=== PATIENT | male | born 1990 | race Caucasian/White ===

== ENCOUNTER 2018-07-01 16:04 | Emergency (ER) | payer OTHER ==
[~2018-07-01] VITALS: Ht 175.3 cm; Wt 93.0 kg
[2018-07-01] MEDS ORDERED: IV NORMAL SALINE 1,000ML 1,000 ML IV SCH (16:38)
[2018-07-01 16:58] LABS: BASO % 0 % (0-3); EOS # 0.1 x10^3/uL (0.0-0.7); EOS % 1 % (0-3); HEMATOCRIT 46.3 % (39.0-53.0); LYMPH # 0.5 x10^3/uL (1.0-4.8); LYMPH % 6 % (24-48); MEAN CORPUSCULAR HEMOGLOBIN 34 pg (25-35); MEAN CORPUSCULAR HGB CONC 35 g/dL (31-37); MEAN CORPUSCULAR VOLUME 98 fL (79-100); MONO # 0.3 x10^3/uL (0.0-1.1); MONO % 3 % (0-9); NEUT # 7.8 x10^3uL (1.8-7.7); NEUT % 90 % (31-73); PLATELET COUNT 202 x10^3/uL (140-400); RED BLOOD COUNT 4.73 x10^6/uL (4.30-5.70); RED CELL DISTRIBUTION WIDTH 13.2 % (11.5-14.5); WHITE BLOOD COUNT 8.7 x10^3/uL (4.0-11.0)
--- NOTE | 2018-07-01 17:06 | PHYS DOC ---
Adult General Chief Complaint Chief Complaint: ABDOMINAL PAIN HPI HPI Patient is a 27 year old male who presents with complaining of diarrhea and abdominal pain. Patient states since last night he had more than 20 episodes of nonbloody diarrhea with epigastric pain as a constant pain with radiation to his back that getting worse with episodes of diarrhea. Patient denies nausea and vomiting and fever and chills. Patient states he had sick contacts at home and his had the same problem after eating the same steak that he ate. Review of Systems Review of Systems Constitutional: Denies fever or chills [] Eyes: Denies change in visual acuity, redness, or eye pain [] HENT: Denies nasal congestion or sore throat [] Respiratory: Denies cough or shortness of breath [] Cardiovascular: No additional information not addressed in HPI [] GI: Reports abdominal pain, diarrhea mild denies nausea, vomiting, bloody stool[ ] : Denies dysuria or hematuria [] Musculoskeletal: Denies back pain or joint pain [] Integument: Denies rash or skin lesions [] Neurologic: Denies headache, focal weakness or sensory changes [] Endocrine: Denies polyuria or polydipsia [] All other systems were reviewed and found to be within normal limits, except as documented in this note. Current Medications Current Medications Current Medications Medications (Trade) Dose Ordered Sig/Alyx Start Time Stop Time Status Last Admin Dose Admin Sodium Chloride 1,000 ml @ 1,000 mls/hr Q1H 07/01/18 16:38 07/01/18 17:37 07/01/18 16:53 1,000 MLS/HR Allergies Allergies Allergies Coded Allergies Type Severity Reaction Last Updated Verified cefaclor Allergy Unknown 07/01/18 Yes Physical Exam Physical Exam Constitutional: Well developed, well nourished, mild distress, non-toxic appearance. [] HENT: Normocephalic, atraumatic, oropharynx dry. Eyes: PERRLA, EOMI, conjunctiva normal, no discharge. [] Neck: Normal range of motion, no tenderness, supple, no stridor. [] Cardiovascular: H Cardia, no murmur [] Lungs & Thorax: Bilateral breath sounds clear to auscultation [] Abdomen: Bowel sounds normal, soft, epigastric guarding, no tenderness, no masses, no pulsatile masses. [] Skin: Warm, dry, no erythema, no rash. [] Back: No tenderness, no CVA tenderness. [] Extremities: No tenderness, no cyanosis, no clubbing, ROM intact, no edema. [] Neurologic: Alert and oriented X 3, normal motor function, normal sensory function, no focal deficits noted. [] Psychologic: Affect normal, judgement normal, mood normal. [] EKG EKG [] Radiology/Procedures Radiology/Procedures [] Course & Med Decision Making Course & Med Decision Making Pertinent Labs reviewed. (See chart for details) Evaluation of patient in ER showed 27-year-old male patient with complaining of frequent episodes of diarrhea with sick contacts at home. Patient treated with IV fluid and felt better. Patient had unremarkable labs. Plan discharge patient home to diagnose of acute enteritis. Dragon Disclaimer Dragon Disclaimer This electronic medical record was generated, in whole or in part, using a voice recognition dictation system. Departure Departure: Impression: Primary Impression: Food poisoning Additional Impression: Diarrhea Disposition: HOME, SELF-CARE (1800) Condition: IMPROVED Referrals: LIZY JORDAN MD (PCP) Patient Instructions: Diarrhea, Diet for Diarrhea, Adult, Food Poisoning Additional Instructions: Drink plenty of liquids Follow-up with your primary care physician in 3-5 days Return to ER if not getting better Scripts Hydrocodone Bit/Acetaminophen (NORCO 5-325 TABLET) 1 Each Tablet 1 TAB PO PRN Q6HRS PRN for PAIN, #10 TAB 0 Refills Prov: GUIDO BOATENG MD 07/01/18 Problem Qualifiers Primary Impression: Food poisoning Encounter type: initial encounter Injury intent: undetermined intent Qualified Codes: T62.94XA - Toxic effect of unspecified noxious substance eaten as food, undetermined, initial encounter Additional Impression: Diarrhea Diarrhea type: unspecified type Qualified Codes: R19.7 - Diarrhea, unspecified GUIDO BOATENG MD Jul 01, 2018 17:06
[2018-07-01 17:18] LABS: BILIRUBIN,URINE NEG (NEG); CLARITY,URINE CLEAR; COLOR,URINE YELLOW; GLUCOSE,URINE NEG (NEG)
[2018-07-01 17:19] LABS: BACTERIA,URINE 0 /HPF (0-FEW); NITRITE,URINE NEG (NEG); RBC,URINE 0 /HPF (0-2); SQUAMOUS EPITHELIAL CELL,UR OCC /LPF; UROBILINOGEN,URINE 0.2 mg/dL (0.2 mg/dL); WBC,URINE 0 /HPF (0-4)
[2018-07-01] MEDS ORDERED: FAMOTIDINE 20 MG/2 ML VIAL IVP ONE (17:30)
[2018-07-01 17:35] LABS: ALBUMIN 4.4 g/dL (3.4-5.0); ALBUMIN/GLOBULIN RATIO 1.2 (1.0-1.7); CALCIUM 9.3 mg/dL (8.5-10.1); CREATININE 1.1 mg/dL (0.7-1.3); GFR 80.9; TOTAL BILIRUBIN 0.7 mg/dL (0.2-1.0); TOTAL PROTEIN 8.1 g/dL (6.4-8.2)
[2018-07-01] MEDS ORDERED: HYDR-3165 PO (18:02)
[2018-07-01 18:15] VITALS: BP 134/72
== END 2018-07-01 18:15 | disposition home or self-care (01) ==
LOC: ER 16:04
DX: T62.94XA Toxic effect of unspecified noxious substance eaten as food, undetermined, initial encounter (principal); R19.7 Diarrhea, unspecified; Z88.1 Allergy status to other antibiotic agents; Y92.89 Other specified places as the place of occurrence of the external cause
CPT/HCPCS: 36415; 80053; 81001; 83690; 85025; 96361; 96374; 99283; J3490; J7030

== ENCOUNTER 2019-11-10 11:19 | Emergency (ER) | payer OTHER ==
[~2019-11-10] VITALS: Ht 175.3 cm; Wt 111.4 kg
[~2019-11-10 11:19] MED LIST: HYDR-3165 PO
[2019-11-10] MEDS ORDERED: KETOROLAC 15 MG/ML VIAL. IVP ONE (12:15)
[2019-11-10] MEDS ORDERED: ONDANSETRON PF 4 MG/2 ML VIAL. IVP ONE (12:15)
[2019-11-10] MEDS ORDERED: IV NORMAL SALINE 1,000ML 1,000 ML IV ONE (12:15)
[2019-11-10] MEDS ORDERED: IOHEXOL 300 MG/ML 75 ML VIAL. IV ONE (12:30)
[2019-11-10] MEDS ORDERED: CONTRAST GIVEN. MC PRN (12:30)
[2019-11-10 12:47] LABS: BASO % 1 % (0-3); EOS # 0.1 x10^3/uL (0.0-0.7); EOS % 2 % (0-3); HEMATOCRIT 43.7 % (39.0-53.0); HEMOGLOBIN 15.3 g/dL (13.0-17.5); LYMPH % 34 % (24-48); MEAN CORPUSCULAR HEMOGLOBIN 35 pg (25-35); MEAN CORPUSCULAR HGB CONC 35 g/dL (31-37); MEAN CORPUSCULAR VOLUME 99 fL (79-100); MONO # 0.5 x10^3/uL (0.0-1.1); MONO % 8 % (0-9); NEUT # 3.2 x10^3uL (1.8-7.7); NEUT % 55 % (31-73); PLATELET COUNT 226 x10^3/uL (140-400); RED BLOOD COUNT 4.43 x10^6/uL (4.30-5.70); WHITE BLOOD COUNT 5.8 x10^3/uL (4.0-11.0)
--- NOTE | 2019-11-10 12:55 | RAD ---
INDICATION: Reason: right groin pain, hx of inguinal hernia / Spl. Instructions: / History: COMPARISON: None. TECHNIQUE: Axial CT images obtained through the abdomen and pelvis with contrast. One or more of the following individualized dose reduction techniques were utilized for this examination: 1. Automated exposure control; 2. Adjustment of the mA and/or kV according to patient size; 3. Use of iterative reconstruction technique. FINDINGS: Abdominal aorta is not aneurysmal. Small fat-containing umbilical hernia. Small fat-containing left inguinal hernia. Gallbladder is partially contracted. No intrahepatic bile duct dilation. No peripancreatic fluid collection. The spleen is unremarkable. No hydronephrosis. The urinary bladder has minimal urine within it at time of exam. No periappendiceal inflammatory changes. No dilated loops of bowel to suggest obstruction. Degenerative changes the spine. Pars defects at L5. Grade 1 anterolisthesis of L5 on S1. IMPRESSION: * No evidence of appendicitis, bowel obstruction or hydronephrosis. * Fat-containing left inguinal hernia. Electronically signed by: Surya Mendez MD (11/10/2019 12:52 PM) [id number]
[2019-11-10 12:56] LABS: CALCIUM 9.1 mg/dL (8.5-10.1); CREATININE 1.2 mg/dL (0.7-1.3); GFR 72.1; POTASSIUM 3.8 mmol/L (3.5-5.1)
[2019-11-10 13:02] LABS: ALBUMIN 4.2 g/dL (3.4-5.0); ALBUMIN/GLOBULIN RATIO 1.1 (1.0-1.7); MAGNESIUM 1.9 mg/dL (1.8-2.4); TOTAL BILIRUBIN 0.5 mg/dL (0.2-1.0); TOTAL PROTEIN 7.9 g/dL (6.4-8.2)
[2019-11-10 13:05] LABS: BACTERIA,URINE 0 /HPF (0-FEW); BILIRUBIN,URINE NEG (NEG); CLARITY,URINE CLEAR; COLOR,URINE YELLOW; GLUCOSE,URINE NEG (NEG); NITRITE,URINE NEG (NEG); RBC,URINE 0 /HPF (0-2); UROBILINOGEN,URINE 0.2 mg/dL (0.2 mg/dL); WBC,URINE 0 /HPF (0-4)
--- NOTE | 2019-11-10 13:14 | PHYS DOC ---
Past History Past Medical History: No Pertinent History Additional Past Surgical Histo: Left knee Smoking: Non-smoker Alcohol Use: Occasionally Drug Use: None General Adult EDM: Chief Complaint: HIP PAIN HPI: HPI: 29 year old male presents with report of right groin pain which has been ongoing for last 6 months intermittently. Reports he was diagnosed with inguinal hernia but reported the surgeon thought it was "too small" to repair at that time. Patient reports pain significantly increased over the last few days. Denies known exacerbating moment. Denies trauma. Denies N/V/D or constipation. Denies fever/chills. Review of Systems: Review of Systems: Constitutional: Denies fever or chills Eyes: Denies change in visual acuity, redness, or eye pain HENT: Denies nasal congestion or sore throat Respiratory: Denies cough or shortness of breath Cardiovascular: Denies chest pain or palpitations GI: Reports abdominal pain; denies nausea, vomiting, or diarrhea : Denies dysuria or hematuria Musculoskeletal: Denies back pain or joint pain Integument: Denies rash or skin lesions Neurologic: Denies headache, focal weakness or sensory changes Complete systems were reviewed and found to be within normal limits, except as documented in this note. Current Medications: Current Meds: Current Medications Medications (Trade) Dose Ordered Sig/Alyx Start Time Stop Time Status Last Admin Dose Admin Info (Do NOT chart on this entry -- for MONITORING) 1 each PRN DAILY PRN 11/10/19 12:30 11/12/19 12:29 Iohexol (Omnipaque 300 Mg/ml) 75 ml 1X ONCE 11/10/19 12:30 11/10/19 12:31 DC 11/10/19 12:36 75 ML Ketorolac Tromethamine (Toradol 15mg Vial) 15 mg 1X ONCE 11/10/19 12:15 11/10/19 12:17 DC 11/10/19 12:30 15 MG Ondansetron HCl (Zofran) 4 mg 1X ONCE 11/10/19 12:15 11/10/19 12:17 DC 11/10/19 12:30 4 MG Sodium Chloride 1,000 ml @ 1,000 mls/hr 1X ONCE 11/10/19 12:15 11/10/19 13:14 11/10/19 12:15 1,000 MLS/HR Allergies: Allergies: Allergies Coded Allergies Type Severity Reaction Last Updated Verified cefaclor Allergy Unknown 11/10/19 Yes Physical Exam: PE: Constitutional: Well developed, well nourished, no acute distress, non-toxic appearance HENT: Normocephalic, atraumatic Eyes: Conjunctiva normal, no discharge Neck: Normal range of motion, supple Lungs & Thorax: Equal chest rise and fall, no respiratory distress Abdomen: Soft, RLQ tenderness, McBurney's point nontender, no guarding/rebound tenderness/distention Skin: Warm, dry, no erythema, no rash Back: No tenderness, no CVA tenderness Extremities: No tenderness, ROM intact, no edema Neurologic: Alert and oriented X 3, no focal deficits noted Psychologic: Affect normal, judgement normal Current Patient Data: Labs: Laboratory Tests Test 11/10/19 12:10 11/10/19 12:30 White Blood Count 5.8 x10^3/uL (4.0-11.0) Red Blood Count 4.43 x10^6/uL (4.30-5.70) Hemoglobin 15.3 g/dL (13.0-17.5) Hematocrit 43.7 % (39.0-53.0) Mean Corpuscular Volume 99 fL (79-100) Mean Corpuscular Hemoglobin 35 pg (25-35) Mean Corpuscular Hemoglobin Concent 35 g/dL (31-37) Red Cell Distribution Width 13.0 % (11.5-14.5) Platelet Count 226 x10^3/uL (140-400) Neutrophils (%) (Auto) 55 % (31-73) Lymphocytes (%) (Auto) 34 % (24-48) Monocytes (%) (Auto) 8 % (0-9) Eosinophils (%) (Auto) 2 % (0-3) Basophils (%) (Auto) 1 % (0-3) Neutrophils # (Auto) 3.2 x10^3uL (1.8-7.7) Lymphocytes # (Auto) 2.0 x10^3/uL (1.0-4.8) Monocytes # (Auto) 0.5 x10^3/uL (0.0-1.1) Eosinophils # (Auto) 0.1 x10^3/uL (0.0-0.7) Basophils # (Auto) 0.0 x10^3/uL (0.0-0.2) Urine Collection Type Unknown Urine Color Yellow Urine Clarity Clear Urine pH 7.0 Urine Specific [place] 1.010 Urine Protein Neg (NEG-TRACE) Urine Glucose (UA) Neg mg/dL (NEG) Urine Ketones (Stick) Neg mg/dL (NEG) Urine Blood Neg (NEG) Urine Nitrite Neg (NEG) Urine Bilirubin Neg (NEG) Urine Urobilinogen Dipstick 0.2 mg/dL (0.2 mg/dL) Urine Leukocyte Esterase Neg (NEG) Urine RBC 0 /HPF (0-2) Urine WBC 0 /HPF (0-4) Urine Squamous Epithelial Cells None /LPF Urine Bacteria 0 /HPF (0-FEW) Sodium Level 139 mmol/L (136-145) Potassium Level 3.8 mmol/L (3.5-5.1) Chloride Level 102 mmol/L (98-107) Carbon Dioxide Level 28 mmol/L (21-32) Anion Gap 9 (6-14) Blood Urea Nitrogen 12 mg/dL (8-26) Creatinine 1.2 mg/dL (0.7-1.3) Estimated GFR (Cockcroft-Gault) 72.1 BUN/Creatinine Ratio 10 (6-20) Glucose Level 101 mg/dL (70-99) H Calcium Level 9.1 mg/dL (8.5-10.1) Magnesium Level 1.9 mg/dL (1.8-2.4) Total Bilirubin 0.5 mg/dL (0.2-1.0) Aspartate Amino Transferase (AST) 16 U/L (15-37) Alanine Aminotransferase (ALT) 32 U/L (16-63) Alkaline Phosphatase 50 U/L (46-116) Total Protein 7.9 g/dL (6.4-8.2) Albumin 4.2 g/dL (3.4-5.0) Albumin/Globulin Ratio 1.1 (1.0-1.7) Lipase 112 U/L (73-393) EKG: EKG: [] Radiology/Procedures: Radiology/Procedures: PROCEDURE: CT ABD PELV W/ IV CONTRST ONLY INDICATION: Reason: right groin pain, hx of inguinal hernia / Spl. Instructions: / History: COMPARISON: None. TECHNIQUE: Axial CT images obtained through the abdomen and pelvis with contrast. One or more of the following individualized dose reduction techniques were utilized for this examination: 1. Automated exposure control; 2. Adjustment of the mA and/or kV according to patient size; 3. Use of iterative reconstruction technique. FINDINGS: Abdominal aorta is not aneurysmal. Small fat-containing umbilical hernia. Small fat-containing left inguinal hernia. Gallbladder is partially contracted. No intrahepatic bile duct dilation. No peripancreatic fluid collection. The spleen is unremarkable. No hydronephrosis. The urinary bladder has minimal urine within it at time of exam. No periappendiceal inflammatory changes. No dilated loops of bowel to suggest obstruction. Degenerative changes the spine. Pars defects at L5. Grade 1 anterolisthesis of L5 on S1. IMPRESSION: * No evidence of appendicitis, bowel obstruction or hydronephrosis. * Fat-containing left inguinal hernia. Electronically signed by: Surya Mendez MD (11/10/2019 12:52 PM) [id number] Course & Med Decision Making: Course & Med Decision Making Pertinent Labs and Imaging studies reviewed. (See chart for details) Patient presents with report of pain to right lower abdomen/groin with history of known inguinal hernia. Reports symptoms present x 6 months but worse over the last few days. Pain addressed. IVF hydration given. Labs obtained and posted to chart. CT abd/pelvis without significant findings. Patient stable for discharge home with outpatient follow-up with PCP/general surgery. General surgery referral provided. Discussed findings and plan with patient, who acknowledges understanding and agreement. Saman Disclaimer: Saman Disclaimer: This electronic medical record was generated, in whole or in part, using a voice recognition dictation system. Departure Departure: Impression: Primary Impression: Inguinal hernia Qualified Codes: K40.90 - Unilateral inguinal hernia, without obstruction or gangrene, not specified as recurrent Disposition: 01 HOME/RESIDENCE PRIOR TO ADM Condition: STABLE Referrals: MARY BEVERLY (PCP) AMADOR TAVERAS MD Patient Instructions: Hernia, [id number] Justification of Admission: Justification of Admission: Justification of Admission Dx: N/A SAE REDD DO Nov 10, 2019 13:14
[2019-11-10 13:42] VITALS: BP 126/74
== END 2019-11-10 13:38 | disposition home or self-care (01) ==
LOC: ER 11:19
DX: K40.90 Unilateral inguinal hernia, without obstruction or gangrene, not specified as recurrent (principal); M25.551 Pain in right hip; R10.31 Right lower quadrant pain; Z79.899 Other long term (current) drug therapy
CPT/HCPCS: 36415; 74177; 80053; 81001; 83690; 83735; 85025; 85610; 85730; 96374; 96375; 99285; J1885; J2405; J7030; Q9967

== ENCOUNTER 2020-03-27 13:35 | Emergency (ER) | payer OTHER ==
[~2020-03-27] VITALS: Ht 175.3 cm; Wt 112.0 kg
[2020-03-27 13:45] VITALS: BP 130/78
--- NOTE | 2020-03-27 14:20 | PHYS DOC ---
Past History Past Medical History: No Pertinent History (SAE RUSSELL APRN) Additional Past Surgical Histo: knee surgery X 2 (SAE RUSSELL APRN) Smoking: Non-smoker Alcohol Use: Rarely Drug Use: None (SAE RUSSELL APRN) Adult General Chief Complaint Chief Complaint: FINGER INJURY HPI HPI Patient is a-year-old male presents to the emergency department with laceration to the left middle tip he suffered while cutting chicken. States his Td status is UTD. Reports he cannot get his finger to stop bleeding. pt denies other complaitns or physical concerns. pt is not homicidal or suicidal, denies anxiety or depression. (SAE RUSSELL APRN) Review of Systems Review of Systems 14 body systems of review of systems have been reviewed. See HPI for pertinent positives and negative responses, otherwise all other systems are negative, nonpertinent or noncontributory. (SAE RUSSELL APRN) Allergies Allergies Allergies Coded Allergies Type Severity Reaction Last Updated Verified cefaclor Allergy Unknown 11/10/19 Yes (SAE RUSSELL APRN) Physical Exam Physical Exam Constitutional: Well developed, well nourished, no acute distress, non-toxic appearance. [] HENT: Normocephalic, atraumatic, bilateral external ears normal, oropharynx moist, no oral exudates, nose normal. [] Eyes: PERRLA, EOMI, conjunctiva normal, no discharge. [] Neck: Normal range of motion, no tenderness, supple, no stridor. [] Cardiovascular:Heart rate regular rhythm, no murmur [] Lungs & Thorax: Bilateral breath sounds clear to auscultation [] Abdomen: Bowel sounds normal, soft, no tenderness, no masses, no pulsatile masses. [] Skin: Warm, dry, no erythema, no rash. 0.5CM laceration to left middle finger distal tip without fingernail damage, bleeding controlled, cap refill <2 sec, N/V intact. Back: No tenderness, no CVA tenderness. [] Extremities: No tenderness, no cyanosis, no clubbing, ROM intact, no edema. [] Neurologic: Alert and oriented X 3, normal motor function, normal sensory function, no focal deficits noted. [] Psychologic: Affect normal, judgement normal, mood normal. [] (SAE RUSSELL APRN) Current Patient Data Vital Signs Vital Signs Date Time Temp Pulse Resp B/P (MAP) Pulse Ox O2 Delivery O2 Flow Rate FiO2 03/27/20 13:45 98.1 80 14 130/78 (95) 95 (SAE RUSSELL APRN) EKG EKG [] (SAE RUSESLL APRN) Radiology/Procedures Radiology/Procedures [] (SAE RUSSELL APRN) Heart Score Risk Factors: Risk Factors: DM, Current or recent (<one month) smoker, HTN, HLP, family history of CAD, obesity. Risk Scores: Risk Factors: DM, Current or recent (<one month) smoker, HTN, HLP, family history of CAD, obesity. (SAE RUSSELL APRN) Course & Med Decision Making Course & Med Decision Making Pertinent Labs and Imaging studies reviewed. (See chart for details) 29 yo patient Vital signs reviewed, presents with distal tip lacartation, bleeding controlled, elected to cleanse and glue repair, see repair note. Pt tolerated well, gave verbal understanding of glue skin wound car, RTER concerns, had no other questions or concerns, pt D/Cd to home without incident. (SAE RUSSELL APRN) Course & Med Decision Making I have reviewed the SUPERVISOR EVAPORATOR's note and plan of care. I was available for consultation as needed during the patient's visit in the emergency department. I agree with the clinical impression, plan, and disposition. (KIMI MALDONADO DO) Dragon Disclaimer Dragon Disclaimer This electronic medical record was generated, in whole or in part, using a voice recognition dictation system. (SAE RUSSELL APRN) Departure Departure: Impression: Primary Impression: Laceration of finger Additional Impression: Glued skin wound Disposition: 01 DC HOME SELF CARE/HOMELESS Condition: IMPROVED Referrals: MARY BEVERLY (PCP) Patient Instructions: Fingertip Laceration Additional Instructions: You had a laceration of your left middle finger tip, we have elected to glue this laceration, please refrain from using lotions or oils on the glue site for the next 5 to 7 days, the glue should peel off on its own. Please return the emergency department for signs and symptoms of infection or worsening symptoms or other concerns. EMERGENCY DEPARTMENT GENERAL DISCHARGE INSTRUCTIONS Thank you for coming to [facility] (ED) today and trusting us with you care. We trust that you had a positivie experience in our Emergency Department. If you wish to speak to the department management, you may call the director at [phone]. YOUR FOLLOW UP INSTRUCTIONS ARE FOLLOWS: 1. Do you have a private Doctor? If you do not have a private doctor, please ask for a resource list of physicians or clinics that may be able to assist you with follow up care. 2. The Emergency Physician has interpreted your x-rays. The X-Ray specialist will also review them. If there is a change in the findings, you will be notified in 48 hours when at all possible. 3. A lab test or culture has been done, your results will be reviewed and you will be notified if you need a change in treatment. ADDITIONAL INSTRUCTIONS AND INFORMATION: 1. Your care today has been supervised by a physician who is specially trained in emergency care. Many problems require more than one evaluation for a complete diagnosis and treatment. We recommend that you schedule your follow up appointment as recommended to ensure complete treatment of you illness or injury. If you are unable to obtain follow up care and continue to have a problem, or if your condition worsens, we recommend that you return to the ED. 2. We are not able to safely determine your condition over the phone nor are we able to give sound medical advice over the phone. For these safety reasons, if you call for medical advice we will ask you to come to the ED for further evaluation. 3. If you have any questions regarding these discharge instructions please call the ED at [phone]. SAFETY INFORMATION: In the interest of safety, wellness, and injury prevention; we encourage you to wear your sealbelt, if you smoke; quite smoking, and we encourage family to use a protective helmet for bicycling and other sporting events that present an increased risk for head injury. IF YOUR SYMPTOMS WORSEN OR NEW SYMPTOMS DEVELOP, OR YOU HAVE CONCERNS ABOUT YOUR CONDITION; OR IF YOUR CONDITION WORSENS WHILE YOU ARE WAITING FOR YOUR FOLLOW UP APPOINTMENT; EITHER CONTACT YOUR PRIMARY CARE DOCTOR, THE PHYSICIAN WHOSE NAME AND NUMBER YOU WERE GIVEN, OR RETURN TO THE ED IMMEDIATELY. Laceration Repair Lac Repair Indication: left middle finger distal tip laceration Procedure: The patient was placed in the appropriate position and anesthesia around the wound was defered per pts request, laceration cleansed with chl orhexadine soap, irrigated with 240 cc NS, repaired with Dermabond, dressed with bandaid. Total repaired wound length: "C" shaped 0.5 CM laceration partial skin thickness Other Items: [OTHER ITEMS] The patient tolerated the procedure well. Complications: [no complications during repair procedure. (SAE RUSSELL APRN) Problem Qualifiers Primary Impression: Laceration of finger Encounter type: initial encounter Finger: middle finger Damage to nail status: without damage Foreign body presence: without foreign body Laterality: left Qualified Codes: S61.213A - Laceration without foreign body of left middle finger without damage to nail, initial encounter SAE RUSSELL APRN Mar 27, 2020 14:20 KIMI MALDONADO DO Mar 28, 2020 13:38
== END 2020-03-27 14:25 | disposition home or self-care (01) ==
LOC: ER 13:35
DX: S61.213A Laceration without foreign body of left middle finger without damage to nail, initial encounter (principal); Z88.1 Allergy status to other antibiotic agents; W26.0XXA Contact with knife, initial encounter; Y93.89 Activity, other specified; Y92.89 Other specified places as the place of occurrence of the external cause; Y99.8 Other external cause status
CPT/HCPCS: 12001; 99282

== ENCOUNTER 2020-04-20 22:34 | Emergency (ER) | payer OTHER ==
[~2020-04-20] VITALS: Ht 175.3 cm; Wt 112.0 kg
--- NOTE | 2020-04-20 22:50 | PHYS DOC ---
Past History Past Medical History: No Pertinent History Additional Past Surgical Histo: knee surgery X 2 Smoking: Non-smoker Alcohol Use: Rarely Drug Use: None Adult General Chief Complaint Chief Complaint: HEADACHE HPI HPI Patient is a 29-year-old male who presents for headache and subsequent high blood pressure readings without official diagnosis of hypertension. Presents via POV. States he has had a headache that started 8 to 12 hours ago without any known inciting event or trauma. Patient took Tylenol and ibuprofen with significant relief in pain. Nothing known makes worse. Pain is right-sided and radiating from posterior neck to right frontal area. Reports sharp pressure-like pain, no ripping or tearing sensations. States he checked his blood pressure at onset of headache and has had consistent readings of 150s/90s when intermittently checked prior to arrival. Denies any excessive caffeine use or NSAID dependence, admits increased home stress recently given the fact that his daughter is currently hospitalized. 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 No history of intracranial abnormalities, denies this being worst headache of his life, no thunderclap onset, changes in vision, history of migraine, no prodromal signs or symptoms prior to onset of headache, no chest pain, shortness of breath, cough, abdominal pain, changes in bladder or bowel function. Review of Systems Review of Systems Fourteen body systems of review of systems have been reviewed. See HPI for pert inent positives and negative responses, other suero all other systems are negative, non-pertinent or non-contributory Allergies Allergies Allergies Coded Allergies Type Severity Reaction Last Updated Verified cefaclor Allergy Unknown 11/10/19 Yes Physical Exam Physical Exam General: Appears well, non toxic, and comfortable Skin: Warm, dry. Normal for ethnicity. HEENT: Atraumatic. PERRLA. Moist mucous membranes. Neck: Trachea midline. Normal ROM. Negative Kernig and Brezinski signs, no nuchal rigidity Respiratory: Normal WOB. CTAB w/o w/r/r. No tachypnea. Cardiovascular: Regular rate and rhythm. Normal peripheral perfusion. No edema. Abdomen: Soft. Non tender. No distension. Back: Normal ROM. Musculoskeletal: No swelling or deformity. Neuro: Alert and oriented x 4. MAEE. GCS 15. CN II-XII intact. Normal strength and sensation. Normal speech. Psych: Normal affect and mood. Current Patient Data Vital Signs Vital Signs Date Time Temp Pulse Resp B/P (MAP) Pulse Ox O2 Delivery O2 Flow Rate FiO2 04/20/20 22:34 98.2 83 18 165/81 (109) 97 Room Air EKG EKG [] Radiology/Procedures Radiology/Procedures [] Heart Score HEART Score for Chest Pain: HEART Score for Chest Pain Response (Comments) Value History Slighlty/Non-Suspicious 0 Age < 45 0 Risk Factors 1 or 2 Risk Factors 1 Total 1 Risk Factors: Risk Factors: DM, Current or recent (<one month) smoker, HTN, HLP, family history of CAD, obesity. Risk Scores: Risk Factors: DM, Current or recent (<one month) smoker, HTN, HLP, family history of CAD, obesity. Course & Med Decision Making Course & Med Decision Making I discussed most likely diagnosis of headache in setting of elevated blood pressure without diagnosis of hypertension. Patient reported during my physical examination he has experienced complete resolution of headache prior to any intervention provided while in ER. I addressed patient's concern for elevated blood pressure readings without official diagnosis of hypertension. He has not been checking his blood pressure regularly and does not know what his average readings are. Does admit to increased anxiety and stress at home given events going on with his hospitalized daughter which he thinks might be contributing to his presenting symptoms today as onset of headache occurred while visiting his hospitalized daughter at hospital. I discussed utility of further diagnostic work-up while in ER, I discussed little utility in diagnostic work-up and radiographs, I did recommend CT head imaging but given patient was asymptomatic, he deferred. Joint decision to administer 12.5 mg hydrochlorothiazide for blood pressure prior to departure, we will defer decision to start this on a scheduled basis until BP log can be reviewed by primary care physician for official diagnosis of hypertension. He has good access to care on post with primary care physician and can be seen in upcoming 24 to 48 hours which I feel is appropriate for repeat evaluation. Strict return precautions were also discussed at length with good understanding by patient. Patient voiced understanding and agreement with the plan. Patient knows to come back for repeat evaluation if concerning signs or symptoms present prior to outpatient follow- up. Patient asymptomatic, ambulatory and well-appearing at time of disposition. Dragon Disclaimer Dragon Disclaimer This electronic medical record was generated, in whole or in part, using a voice recognition dictation system. Departure Departure: Impression: Primary Impression: Elevated blood pressure reading without diagnosis of hypertension Additional Impression: Headache Disposition: 01 DC HOME SELF CARE/HOMELESS Condition: STABLE Referrals: PCP,UNKNOWN (PCP) Patient Instructions: General Headache Without Cause Additional Instructions: You were seen for a headache and elevated blood pressure reading without official diagnosis of hypertension. Your symptoms improved with NSAIDs and Tylenol taken prior to arrival. I discussed utility in further diagnostic work- up in ER but joint decision to defer and follow-up in outpatient setting with primary care physician. You should keep a blood pressure log for review with your primary care physician in outpatient setting. You should return to the ED if you develop worsening pain, vision change, numbness, tingling, weakness, vomiting, fever, neck pain, or any other new or concerning symptoms. It was a pleasure to take care of you and I wish you the best going forward Problem Qualifiers KIMI MALDONADO DO Apr 20, 2020 22:50
[2020-04-20 23:25] VITALS: BP 155/82
[2020-04-20] MEDS ORDERED: hydroCHLOROthiazide 25 MG TABLET PO ONE (23:30)
== END 2020-04-20 23:38 | disposition home or self-care (01) ==
LOC: ER 22:34
DX: R03.0 Elevated blood-pressure reading, without diagnosis of hypertension (principal); R51.9 Headache, unspecified; Z88.1 Allergy status to other antibiotic agents
CPT/HCPCS: 99283

== ENCOUNTER 2020-06-17 09:59 | Emergency (ER) | payer OTHER ==
[~2020-06-17] VITALS: Ht 175.3 cm; Wt 115.7 kg
[2020-06-17 10:08] VITALS: BP 146/56
--- NOTE | 2020-06-17 10:35 | RAD ---
EXAM: 3 Views Right Shoulder DATE: 06/17/2020 10:18 AM INDICATION: Reason: Possible dislocation / Spl. Instructions: / History: COMPARISON: No Prior FINDINGS: There is no evidence for acute fracture or dislocation. AC joint is congruent. Mild AC joint degenera tive changes. Humeral head is not high riding. IMPRESSION: 1. No acute fracture or dislocation. 2. Mild AC joint degenerative change. Electronically signed by: Lokesh Higginbotham MD (06/17/2020 10:33 AM) [id number]
--- NOTE | 2020-06-17 10:43 | PHYS DOC ---
Past History Past Medical History: Other Additional Past Medical Histor: INGUINAL HERNIA REPAIRED Past Surgical History: Other Additional Past Surgical Histo: knee surgery X 2 Smoking: Non-smoker Alcohol Use: None Drug Use: None General Adult EDM: Chief Complaint: UPPER EXTREMITY PAIN HPI: HPI: 29-year-old male presents to the ED with complaints of focal, nonradiating right localized shoulder pain that started yesterday morning after he had a blunt shoulder injury while playing football the day before. Patient states he has normal range of motion but certain positions exacerbate the pain. No history of prior injury to that shoulder. 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 No recent fluoroquinolone use. Has not taken anything for the pain and reports pain is very manageable but " I just want to get it checked out." Review of Systems: Review of Systems: Constitutional: Denies fever or chills Eyes: Denies change in visual acuity HENT: Denies nasal congestion or sore throat Respiratory: Denies cough or shortness of breath Cardiovascular: Denies chest pain or edema GI: Denies abdominal pain, nausea, vomiting, bloody stools or diarrhea : Denies dysuria Musculoskeletal: Denies back pain or joint swelling or warmth Integument: Denies rash or diaphoresis Neurologic: Denies headache, focal weakness or sensory changes, no radiculopathy Endocrine: Denies polyuria or polydipsia Lymphatic: Denies swollen glands Psychiatric: Denies depression or anxiety Allergies: Allergies: Allergies Coded Allergies Type Severity Reaction Last Updated Verified cefaclor Allergy Unknown 11/10/19 Yes Physical Exam: PE: Constitutional: Well developed, well nourished, no acute distress, non-toxic appearance. HENT: Normocephalic, atraumatic, Eyes: EOMI, conjunctiva normal, no discharge. Neck: Normal range of motion, supple, Cardiovascular: S1/2 present, regular rhythm Lungs & Thorax: Speaking in full sentences, bilateral equal chest rise, no tachypnea or increased work of breathing Abdomen: soft, no tenderness, Skin: Warm, dry, no erythema, no rash, equal radial pulses Extremities: Focal tenderness over AC joint-no deformity rash or swelling, patient with full range of motion of right shoulder, drop can test negative, positive Rod impingement test, negative Neer's, no pain w/Yergason's test Neurologic: Alert and oriented X 3, normal motor function, normal sensory function, no focal deficits noted. [] Psychologic: Affect normal, judgement normal, mood normal. [] Current Patient Data: Vital Signs: Vital Signs Date Time Temp Pulse Resp B/P (MAP) Pulse Ox O2 Delivery O2 Flow Rate FiO2 06/17/20 10:08 97.8 74 16 146/56 (86) 98 Room Air EKG: EKG: [] Radiology/Procedures: Radiology/Procedures: IMAGING REPORT Signed PATIENT: VALERIA WOOTEN ACCOUNT: [id number] : 1990 LOCATION: ER AGE: 29 SEX: M EXAM STATUS: REG ER ORD. PHYSICIAN: CHET GRACE DO REASON: Possible dislocation PROCEDURE: SHOULDER 2+V RIGHT EXAM: 3 Views Right Shoulder DATE: 06/17/2020 10:18 AM INDICATION: Reason: Possible dislocation / Spl. Instructions: / History: COMPARISON: No Prior FINDINGS: There is no evidence for acute fracture or dislocation. AC joint is congruent. Mild AC joint degenerative changes. Humeral head is not high riding. IMPRESSION: 1. No acute fracture or dislocation. 2. Mild AC joint degenerative change. Electronically signed by: Lokesh Anaya MD (06/17/2020 10:33 AM) [id number] DICTATED AND SIGNED BY: LOKESH ANAYA MD DATE: 06/17/20 1032 CC: PCP,UNKNOWN; CHET GRACE DO ~MTH0 0 Heart Score: Risk Factors: Risk Factors: DM, Current or recent (<one month) smoker, HTN, HLP, family history of CAD, obesity. Risk Scores: Score 0 - 3: 2.5% MACE over next 6 weeks - Discharge Home Score 4 - 6: 20.3% MACE over next 6 weeks - Admit for Clinical Observation Score 7 - 10: 72.7% MACE over next 6 weeks - Early Invasive Strategies Course & Med Decision Making: Course & Med Decision Making Pertinent Labs and Imaging studies reviewed. (See chart for details) Concern for right AC degenerative joint disease with impingement syndrome -could have partial rotator cuff tear vs subacromial bursitis. Recommended NSAIDs [id number] and ophthalmic aide patches. Patient calm and in no distress. Will discharge home with strict ED return precautions were given for pain out of proportion, neurologic deficits, skin color changes or further injury. Encouraged urgent outpatient follow-up with PMD and orthopedic surgery if pain should persist/definitive diagnosis with MRI. Life-threatening processes were considered but are low suspicion at this time, given history, physical exam and ED workup. Pt was educated on all prescription medications and adverse effects. All patient's questions were answered and pt was stable at time of discharge. Life/limb-threatening differential includes but is not limited to, trauma (fracture, dislocation, laceration, compartment syndrome, tendon or ligament injury), neurovascular injury or deficit, infection (osteomyelitis, abscess, cellulitis, septic arthritis, necrotizing fasciitis), deep vein thrombosis, renal/cardiac/liver disease, medication adverse effect, lymphedema/anasarca, vascular insufficiency or malignancy, I spoken with the patient and her caregivers. I explained the patient's con dition, diagnoses and treatment plan based on the information available to me at this time. I have answered the patient and her caregiver's questions and addressed any concerns. The patient and her caregivers have a good understanding of patient's diagnosis, condition and treatment plan as can be expected at this point. Vital signs have been stable. Patient's condition is stable and appropriate for discharge from the emergency department. Patient will pursue further outpatient evaluation with primary care physician or other designated or consulting physician as outlined in the discharge instructions. The patient and/or caregivers are agreeable to this plan of care and follow-up instructions have been explained in detail. The patient and/or caregivers have received these instructions in written form and have expressed an understanding of the discharge instructions. The patient and/or caregivers are aware that any significant change of condition or worsening of symptoms should prompt immediate return to this or the closest emergency department or call to 911. Saman Disclaimer: Saman Disclaimer: This electronic medical record was generated, in whole or in part, using a voice recognition dictation system. Departure Departure: Impression: Primary Impression: DJD of right AC (acromioclavicular) joint Additional Impression: Rotator cuff impingement syndrome of right shoulder Disposition: 01 DC HOME SELF CARE/HOMELESS Condition: STABLE Referrals: PCP,UNKNOWN (PCP) FOLLOW UP WITH FAMILY MEDICINE: [employer] [facility], [facility] [address] [address] [facility] [address] [place] [address], Patient Instructions: Impingement Syndrome, Rotator Cuff, Bursitis with Rehab- [facility], Osteoarthritis Additional Instructions: FOLLOW UP WITH ORTHOPEDICS: [facility] [address], [place] [place] [address] EMERGENCY DEPARTMENT GENERAL DISCHARGE INSTRUCTIONS Thank you for coming to [facility] (ED) today and trusting us with you care. We trust that you had a positivie experience in our Emergency Department. If you wish to speak to the department management, you may call the director at [phone]. YOUR FOLLOW UP INSTRUCTIONS ARE FOLLOWS: 1. Do you have a private Doctor? If you do not have a private doctor, please ask for a resource list of physicians or clinics that may be able to assist you with follow up care. 2. The Emergency Physician has interpreted your x-rays. The X-Ray specialist will also review them. If there is a change in the findings, you will be notified in 48 hours when at all possible. 3. A lab test or culture has been done, your results will be reviewed and you will be notified if you need a change in treatment. ADDITIONAL INSTRUCTIONS AND INFORMATION: 1. Your care today has been supervised by a physician who is specially trained in emergency care. Many problems require more than one evaluation for a complete diagnosis and treatment. We recommend that you schedule your follow up appointment as recommended to ensure complete treatment of you illness or injury. If you are unable to obtain follow up care and continue to have a problem, or if your condition worsens, we recommend that you return to the ED. 2. We are not able to safely determine your condition over the phone nor are we able to give sound medical advice over the phone. For these safety reasons, if you call for medical advice we will ask you to come to the ED for further evaluation. 3. If you have any questions regarding these discharge instructions please call the ED at [phone]. SAFETY INFORMATION: In the interest of safety, wellness, and injury prevention; we encourage you to wear your sealbelt, if you smoke; quite smoking, and we encourage family to use a protective helmet for bicycling and other sporting events that present an increased risk for head injury. IF YOUR SYMPTOMS WORSEN OR NEW SYMPTOMS DEVELOP, OR YOU HAVE CONCERNS ABOUT YOUR CONDITION; OR IF YOUR CONDITION WORSENS WHILE YOU ARE WAITING FOR YOUR FOLLOW UP APPOINTMENT; EITHER CONTACT YOUR PRIMARY CARE DOCTOR, THE PHYSICIAN WHOSE NAME AND NUMBER YOU WERE GIVEN, OR RETURN TO THE ED IMMEDIATELY. Scripts Lidocaine/Menthol (LIDOPATCH) 1 Each Adh..patch 1 HAO TP DAILY PRN for PAIN for 5 Days, #5 EACH 0 Refills Apply 1 patch for 12 hours, remove the next 12 hours May repeat 4 times, 1 patch each day with a total of 5 patches Prov: CHET GRACE DO 06/17/20 CHET GRACE DO Jun 17, 2020 10:43
[2020-06-17] MEDS ORDERED: LIDO1ADH TP (10:59)
== END 2020-06-17 12:12 | disposition home or self-care (01) ==
LOC: ER 09:59
DX: M25.511 Pain in right shoulder (principal); M19.90 Unspecified osteoarthritis, unspecified site; Z98.890 Other specified postprocedural states; Z88.8 Allergy status to other drugs, medicaments and biological substances
CPT/HCPCS: 73030; 99283

== ENCOUNTER 2020-07-12 21:52 | Emergency (ER) | payer OTHER ==
[~2020-07-12] VITALS: Ht 175.3 cm; Wt 115.7 kg
[~2020-07-12 21:52] MED LIST changes: +LIDO1ADH TP
--- NOTE | 2020-07-12 22:20 | PHYS DOC ---
Past History Past Medical History: Other Additional Past Medical Histor: INGUINAL HERNIA REPAIRED Past Surgical History: Other Additional Past Surgical Histo: knee surgery X 2 Smoking: Non-smoker Alcohol Use: None Drug Use: None Adult General Chief Complaint Chief Complaint: CHEST PAIN HPI HPI Patient is a 29-year-old male presents with chest pain. Reports that the pain has been intermittent for the past 2 to 3 months. He was seen at his primary care office for this last week and was prescribed buspirone due to concern that the pain was anxiety related. He was also referred to cardiology but has not made the appointment yet. Since that appointment the pain has become more frequent. He reports an episode today while he was lifting weights at the gym (leg exercises) at which time he states that the pain was located in the left chest, sharp, non-radiating, and associated with lightheadedness and mild sweating. He immediately sat down and checked his heart rate at the time and reports that it went from 110bpm to 60 bpm within several minutes. The pain continues to be intermittent but he denies any symptoms currently other than bilateral ringing in the ears which has also been going on intermittently for the past several months. Patient reports extensive family history of cardiac problems. His father at age 48 of cardiac arrest, his mother has had a pacemaker for many years, and his young daughter has a pacemaker as well. Review of Systems Review of Systems Fourteen body systems of review of systems have been reviewed. See HPI for pertinent positives and negative responses, other suero all other systems are ne gative, non-pertinent or non-contributory Allergies Allergies Allergies Coded Allergies Type Severity Reaction Last Updated Verified cefaclor Allergy Unknown 11/10/19 Yes Physical Exam Physical Exam Constitutional: Well developed, well nourished, no acute distress, non-toxic appearance. HENT: Normocephalic, atraumatic, bilateral external ears normal, oropharynx moist, no oral exudates, nose normal. Eyes: PERRLA, EOMI, conjunctiva normal, no discharge. Neck: Normal range of motion, no tenderness, supple, no stridor. Cardiovascular: Heart rate regular, sinus rhythm, no murmurs rubs or gallops Lungs & Thorax: Bilateral breath sounds clear to auscultation Abdomen: Bowel sounds normal, soft, no tenderness, no masses, no pulsatile masses. Nonsurgical abdomen, no peritoneal signs Skin: Warm, dry, no erythema, no rash. Back: No tenderness, no CVA tenderness. Extremities: No tenderness, no cyanosis, no clubbing, ROM intact, no edema. Neurologic: Alert and oriented X 3, grossly normal motor & sensory function, no focal deficits noted. Psychologic: Affect normal, judgement normal, mood normal. Current Patient Data Vital Signs Vital Signs Date Time Temp Pulse Resp B/P (MAP) Pulse Ox O2 Delivery O2 Flow Rate FiO2 07/13/20 00:45 98.5 69 24 123/68 (86) 97 Room Air 07/12/20 23:35 71 22 162/100 (120) 97 Room Air 07/12/20 23:22 78 23 170/101 (124) 98 Room Air 07/12/20 23:06 69 14 163/88 (113) 97 Room Air 07/12/20 22:50 64 18 154/79 (104) 97 Room Air 07/12/20 22:35 70 15 142/111 (121) 97 Room Air 07/12/20 22:20 63 14 155/96 (115) 98 Room Air 07/12/20 22:06 66 14 160/92 (114) 98 Room Air 07/12/20 22:02 98.5 82 16 146/56 (86) 97 Room Air Lab Results Laboratory Tests Test 07/12/20 22:29 White Blood Count 8.6 x10^3/uL Red Blood Count 4.46 x10^6/uL Hemoglobin 14.9 g/dL Hematocrit 43.5 % Mean Corpuscular Volume 97 fL Mean Corpuscular Hemoglobin 33 pg Mean Corpuscular Hemoglobin Concent 34 g/dL Red Cell Distribution Width 12.5 % Platelet Count 236 x10^3/uL Neutrophils (%) (Auto) 47 % Lymphocytes (%) (Auto) 42 % Monocytes (%) (Auto) 9 % Eosinophils (%) (Auto) 1 % Basophils (%) (Auto) 0 % Neutrophils # (Auto) 4.0 x10^3uL Lymphocytes # (Auto) 3.6 x10^3/uL Monocytes # (Auto) 0.7 x10^3/uL Eosinophils # (Auto) 0.1 x10^3/uL Basophils # (Auto) 0.0 x10^3/uL Sodium Level 141 mmol/L Potassium Level 3.9 mmol/L Chloride Level 102 mmol/L Carbon Dioxide Level 31 mmol/L Anion Gap 8 Blood Urea Nitrogen 20 mg/dL Creatinine 1.2 mg/dL Estimated GFR (Cockcroft-Gault) 72.1 Glucose Level 98 mg/dL Calcium Level 9.7 mg/dL Troponin I Quantitative < 0.017 ng/mL Lipase 142 U/L Current Medications Medications (Trade) Dose Ordered Sig/Alyx Route PRN Reason Start Time Stop Time Status Last Admin Dose Admin Aspirin (Aspirin Chewable) 324 mg 1X ONCE PO 07/12/20 23:00 07/12/20 23:12 DC 07/12/20 23:21 EKG EKG EKG ordered and interpreted by myself at 2205 hrs. as sinus rhythm at 64 bpm, unremarkable intervals, no axis deviation, no acute ischemic findings, no STEMI Comparison EKG ordered and interpreted by myself at 2310 hours. Sinus rhythm at a rate of 66 bpm, unremarkable intervals, no axis deviation, no acute ischemic findings, no STEMI. Radiology/Procedures Radiology/Procedures PROCEDURE: PORTABLE CHEST 1V INDICATION: Reason: Chest pain / Spl. Instructions: / History: COMPARISON: None. FINDINGS: Single view of chest obtained. Hypoexpanded exam without focal airspace consolidation. Cardiac silhouette is unremarkable given portable technique. IMPRESSION: * Hypoexpanded exam without definite focal airspace consolidation. Electronically signed by: Surya Mendez MD (07/13/2020 12:07 AM) DESKTOP- [id number] Heart Score C/O Chest Pain: Yes HEART Score for Chest Pain: HEART Score for Chest Pain Response (Comments) Value History Slighlty/Non-Suspicious 0 ECG Normal 0 Age < 45 0 Risk Factors No Risk Factors 0 Troponin < Normal Limit 0 Total 0 Risk Factors: Risk Factors: DM, Current or recent (<one month) smoker, HTN, HLP, family history of CAD, obesity. Risk Scores: Risk Factors: DM, Current or recent (<one month) smoker, HTN, HLP, family history of CAD, obesity. Course & Med Decision Making Course & Med Decision Making Hemodynamically stable patient with concerning history of cardiac risk factors/family cardiac issues with unremarkable physical exam and diagnostic ER work-up Patient has good access to care with PCP and is pending cardiology consultation which is appropriate. He will likely need outpatient provocative cardiac testing that includes stress and/or echo Patient asymptomatic after reevaluation. He was here mostly because "this is been going on for a while than I am scared ". Reassurance was given that likelihood of any acute abnormality is low. Strict return precautions were discussed with good understanding, all questions and concerns addressed prior to ER departure in stable condition Saman Disclaimer Saman Disclaimer This electronic medical record was generated, in whole or in part, using a voice recognition dictation system. Departure Departure: Impression: Primary Impression: Chest pain, unspecified Disposition: 01 DC HOME SELF CARE/HOMELESS Condition: STABLE Referrals: PCP,UNKNOWN (PCP) Additional Instructions: You were seen for chest pain. Your workup did not show any acute abnormalities today, but does not indicate that you do not have underlying cardiovascular disease. 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 You should return to the ED if you develop worsening chest pain, shortness of breath, fever, abnormal sweating, leg swelling, or any other new or concerning symptoms. It was a pleasure to take care of you and I wish you the best going forward KIMI MALDONADO DO Jul 12, 2020 22:20
[2020-07-12] MEDS ORDERED: ASPIRIN CHEWABLE 81 MG TABLET. PO ONE (23:00)
[2020-07-12 23:08] LABS: BASO % 0 % (0-3); EOS # 0.1 x10^3/uL (0.0-0.7); EOS % 1 % (0-3); HEMATOCRIT 43.5 % (39.0-53.0); HEMOGLOBIN 14.9 g/dL (13.0-17.5); LYMPH # 3.6 x10^3/uL (1.0-4.8); LYMPH % 42 % (24-48); MEAN CORPUSCULAR HEMOGLOBIN 33 pg (25-35); MEAN CORPUSCULAR HGB CONC 34 g/dL (31-37); MEAN CORPUSCULAR VOLUME 97 fL (79-100); MONO # 0.7 x10^3/uL (0.0-1.1); MONO % 9 % (0-9); NEUT % 47 % (31-73); PLATELET COUNT 236 x10^3/uL (140-400); RED BLOOD COUNT 4.46 x10^6/uL (4.30-5.70); RED CELL DISTRIBUTION WIDTH 12.5 % (11.5-14.5); WHITE BLOOD COUNT 8.6 x10^3/uL (4.0-11.0)
[2020-07-12 23:12] LABS: CALCIUM 9.7 mg/dL (8.5-10.1); CREATININE 1.2 mg/dL (0.7-1.3); GFR 72.1; POTASSIUM 3.9 mmol/L (3.5-5.1)
--- NOTE | 2020-07-13 00:10 | RAD ---
INDICATION: Reason: Chest pain / Spl. Instructions: / History: COMPARISON: None. FINDINGS: Single view of chest obtained. Hypoexpanded exam without focal airspace consolidation. Cardiac silhouette is unremarkable given port able technique. IMPRESSION: * Hypoexpanded exam without definite focal airspace consolidation. Electronically signed by: Surya Mendez MD (07/13/2020 12:07 AM) [id number]
[2020-07-13 00:45] VITALS: BP 123/68
--- NOTE | 2020-07-13 00:47 | EKG ---
[facility] ED 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
--- NOTE | 2020-07-13 00:47 | EKG ---
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
== END 2020-07-13 00:49 | disposition home or self-care (01) ==
LOC: ER 21:52
DX: R07.89 Other chest pain (principal); R42 Dizziness and giddiness; H93.13 Tinnitus, bilateral; Z95.0 Presence of cardiac pacemaker; Z88.1 Allergy status to other antibiotic agents
CPT/HCPCS: 36415; 71045; 80048; 83690; 84484; 85025; 93005; 99285

== ENCOUNTER 2020-10-27 21:07 | Emergency (ER) | payer OTHER ==
[~2020-10-27] VITALS: Ht 175.3 cm; Wt 111.8 kg
--- NOTE | 2020-10-27 21:53 | RAD ---
Exam: Chest one view INDICATION: Chest pain TECHNIQUE: Frontal view of the chest Comparisons: 07/12/2020 FINDINGS: The cardiomediastinal silhouette and pulmonary vessels are within normal limits. The lung and pleural spaces are clear. IMPRESSION: No acute cardiopulmonary process. Electronically signed by: Alek Washburn MD (10/27/2020 9:51 PM) MAHSA
[2020-10-27 22:08] LABS: BASO % 1 % (0-3); EOS # 0.2 x10^3/uL (0.0-0.7); EOS % 3 % (0-3); HEMOGLOBIN 14.7 g/dL (13.0-17.5); LYMPH # 2.8 x10^3/uL (1.0-4.8); LYMPH % 39 % (24-48); MEAN CORPUSCULAR HEMOGLOBIN 34 pg (25-35); MEAN CORPUSCULAR HGB CONC 35 g/dL (31-37); MEAN CORPUSCULAR VOLUME 98 fL (79-100); MONO # 0.5 x10^3/uL (0.0-1.1); MONO % 7 % (0-9); NEUT # 3.7 x10^3uL (1.8-7.7); NEUT % 51 % (31-73); PLATELET COUNT 215 x10^3/uL (140-400); RED BLOOD COUNT 4.28 x10^6/uL (4.30-5.70); RED CELL DISTRIBUTION WIDTH 12.4 % (11.5-14.5); WHITE BLOOD COUNT 7.3 x10^3/uL (4.0-11.0)
--- NOTE | 2020-10-27 22:11 | PHYS DOC ---
Past History Past Medical History: GERD, Other Additional Past Medical Histor: INGUINAL HERNIA REPAIRED Past Surgical History: Other Additional Past Surgical Histo: knee surgery X 2, HERNIA REPAIR Smoking: Non-smoker Alcohol Use: Occasionally Drug Use: None Adult General Chief Complaint Chief Complaint: Palpitations [facility] Patient is a 30 year old male who presents with chest palpitations approximately 1 hour prior to arrival. He felt his heart beating and was experiencing sharp chest pain, he took his blood pressure which was 150/100 and his pulse was in higher 50s to 60s. The pain was central without any radiation and was described as sharp with occasional pressure-like sensation. The pain has resolved on arrival to the emergency department. Patient has significant history of having similar symptoms in the past. She was referred to rfid systems engineer in 2 months ago finished cardiac work-up including normal stress test and normal Holter monitoring for 1 week. He has done well since except for having pain that spontaneously started prior to arrival today. Chest pain-free at present time. He denies any abdominal pain, shortness of breath, leg pain, fever, cough, headache, focal weakness or numbness. Review of Systems Review of Systems Constitutional: Denies fever or chills Eyes: Denies change in visual acuity, redness, or eye pain HENT: Denies nasal congestion or sore throat Respiratory: Denies cough or shortness of breath Cardiovascular: No additional information not addressed in [facility] GI: Denies abdominal pain, nausea, vomiting, bloody stools or diarrhea : Denies dysuria or hematuria Musculoskeletal: Denies back pain or joint pain Integument: Denies rash or skin lesions Neurologic: Denies headache, focal weakness or sensory changes Endocrine: Denies polyuria or polydipsia All other systems were reviewed and found to be within normal limits, except as documented in this note. Family History Family History Unremarkable Current Medications Current Medications None Allergies Allergies Allergies Coded Allergies Type Severity Reaction Last Updated Verified cefaclor Allergy Unknown 11/10/19 Yes Physical Exam Physical Exam Constitutional: Well developed, well nourished, no acute distress, non-toxic appearance. HENT: Normocephalic, atraumatic, bilateral external ears normal, oropharynx moist, no oral exudates. Eyes: PERRLA, EOMI, conjunctiva normal, no discharge. Neck: Normal range of motion, no tenderness, supple, no stridor. Cardiovascular:Heart rate regular rhythm, no murmur Lungs & Thorax: Bilateral breath sounds clear to auscultation Abdomen: Bowel sounds normal, soft, no tenderness, no masses, no pulsatile masses. Skin: Warm, dry, no erythema, no rash. Back: No tenderness, no CVA tenderness. Extremities: No tenderness, no cyanosis, no clubbing, ROM intact, no edema. Neurologic: Alert and oriented X 3, normal motor function, normal sensory function, no focal deficits noted. Psychologic: Affect normal, judgement normal, mood normal. Current Patient Data Vital Signs Vital Signs Date Time Temp Pulse Resp B/P (MAP) Pulse Ox O2 Delivery O2 Flow Rate FiO2 10/27/20 21:11 98.0 81 18 149/100 99 Room Air Lab Results Laboratory Tests Test 10/27/20 21:34 White Blood Count 7.3 x10^3/uL Red Blood Count 4.28 x10^6/uL Hemoglobin 14.7 g/dL Hematocrit 42.0 % Mean Corpuscular Volume 98 fL Mean Corpuscular Hemoglobin 34 pg Mean Corpuscular Hemoglobin Concent 35 g/dL Red Cell Distribution Width 12.4 % Platelet Count 215 x10^3/uL Neutrophils (%) (Auto) 51 % Lymphocytes (%) (Auto) 39 % Monocytes (%) (Auto) 7 % Eosinophils (%) (Auto) 3 % Basophils (%) (Auto) 1 % Neutrophils # (Auto) 3.7 x10^3uL Lymphocytes # (Auto) 2.8 x10^3/uL Monocytes # (Auto) 0.5 x10^3/uL Eosinophils # (Auto) 0.2 x10^3/uL Basophils # (Auto) 0.0 x10^3/uL Sodium Level 143 mmol/L Potassium Level 3.5 mmol/L Chloride Level 104 mmol/L Carbon Dioxide Level 30 mmol/L Anion Gap 9 Blood Urea Nitrogen 14 mg/dL Creatinine 0.9 mg/dL Estimated GFR (Cockcroft-Gault) 99.8 Glucose Level 104 mg/dL Calcium Level 8.9 mg/dL Troponin I Quantitative < 0.017 ng/mL EKG EKG EKG has 72 bpm normal sinus rhythm without any significant ST segment abnormalities or arrhythmia or axis abnormalities as interpreted by me [] Radiology/Procedures Radiology/Procedures Chest x-ray as interpreted by radiology is without any acute cardiopulmonary abnormalities. [] Heart Score C/O Chest Pain: Yes HEART Score for Chest Pain: HEART Score for Chest Pain Response (Comments) Value History Slighlty/Non-Suspicious 0 ECG Normal 0 Age < 45 0 Risk Factors No Risk Factors 0 Troponin < Normal Limit 0 Total 0 Risk Factors: Risk Factors: No significant cardiac risk factors Course & Med Decision Making Course & Med Decision Making Pertinent Labs and Imaging studies reviewed. (See chart for details) Patient presented with complaint of chest palpitations with some sharp and atypical pain. He has had extensive work-up done recently including Holter monitor and cardiac stress test which have been all normal. He has been prescribed BuSpar for anxiety by his physician previously. It is unclear if the today's episode could represent anxiety and thus a brief work-up was initiated. His EKG and x-rays are unremarkable. All of his laboratory studies including troponin I were normal. In view of his low risk factors and having had recent work-up done, I feel comfortable discharging him home. Patient is asymptomatic at present and will follow up with his primary care physician in the next couple of days. Dragon Disclaimer Dragon Disclaimer This electronic medical record was generated, in whole or in part, using a voice recognition dictation system. Departure Departure: Impression: Primary Impression: Palpitations Disposition: HOME / SELF CARE / HOMELESS Condition: IMPROVED Referrals: PCP,UNKNOWN (PCP) Patient Instructions: Palpitations Additional Instructions: Please see your primary care physician and if need to the same rfid systems engineer you were seen for your previous work-up. If you develop chest pain again or have any shortness of breath, please seek immediate medical attention. AYAZ CHRISTIAN MD Oct 27, 2020 22:11
[2020-10-27 22:34] LABS: CALCIUM 8.9 mg/dL (8.5-10.1); CREATININE 0.9 mg/dL (0.7-1.3); GFR 99.8; POTASSIUM 3.5 mmol/L (3.5-5.1)
[2020-10-27 23:40] VITALS: BP 111/70
--- NOTE | 2020-10-28 02:36 | EKG ---
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
== END 2020-10-27 23:43 | disposition home or self-care (01) ==
LOC: ER 21:07
DX: R00.2 Palpitations (principal); R07.89 Other chest pain; K21.9 Gastro-esophageal reflux disease without esophagitis; Z88.1 Allergy status to other antibiotic agents
CPT/HCPCS: 36415; 71045; 80048; 84484; 85025; 93005; 99285

== ENCOUNTER 2021-02-28 13:58 | Emergency (ER) | payer OTHER ==
[~2021-02-28] VITALS: Ht 182.9 cm; Wt 100.0 kg
--- NOTE | 2021-02-28 15:11 | RAD ---
AP chest. HISTORY: Chest pain AP view was taken of the chest. Lungs are clear. Heart is normal in size without heart failure. There is no pleural effusion. IMPRESSION: 1. No acute chest disease. Electronically signed by: Kevon Sams MD (02/28/2021 3:09 PM) [id number]
[2021-02-28 15:12] LABS: BASO % 1 % (0-3); EOS # 0.1 x10^3/uL (0.0-0.7); EOS % 1 % (0-3); HEMATOCRIT 43.4 % (39.0-53.0); HEMOGLOBIN 14.9 g/dL (13.0-17.5); LYMPH # 2.1 x10^3/uL (1.0-4.8); LYMPH % 26 % (24-48); MEAN CORPUSCULAR HEMOGLOBIN 34 pg (25-35); MEAN CORPUSCULAR HGB CONC 34 g/dL (31-37); MEAN CORPUSCULAR VOLUME 99 fL (79-100); MONO # 0.5 x10^3/uL (0.0-1.1); MONO % 6 % (0-9); NEUT # 5.5 x10^3uL (1.8-7.7); NEUT % 67 % (31-73); PLATELET COUNT 223 x10^3/uL (140-400); RED BLOOD COUNT 4.38 x10^6/uL (4.30-5.70); RED CELL DISTRIBUTION WIDTH 12.8 % (11.5-14.5); WHITE BLOOD COUNT 8.3 x10^3/uL (4.0-11.0)
[2021-02-28 15:27] LABS: CALCIUM 9.1 mg/dL (8.5-10.1); CREATININE 0.9 mg/dL (0.7-1.3); GFR 99.8; POTASSIUM 3.6 mmol/L (3.5-5.1)
[2021-02-28 15:29] LABS: ALBUMIN 4.1 g/dL (3.4-5.0); ALBUMIN/GLOBULIN RATIO 1.2 (1.0-1.7); TOTAL BILIRUBIN 0.3 mg/dL (0.2-1.0); TOTAL PROTEIN 7.6 g/dL (6.4-8.2)
[2021-02-28] MEDS ORDERED: ALPR0.5T PO (15:47)
--- NOTE | 2021-02-28 15:49 | PHYS DOC ---
Past History Past Medical History: GERD, Other Additional Past Medical Histor: INGUINAL HERNIA REPAIRED (ZAIN ROSS) Past Surgical History: No Surgical History Additional Past Surgical Histo: knee surgery X 2, HERNIA REPAIR (ZAIN ROSS) Smoking: Non-smoker Alcohol Use: Occasionally Drug Use: None (ZAIN ROSS) General Adult EDM: Chief Complaint: CHEST PAIN HPI: HPI: Patient is a 30 year old male with history of anxiety who presents with burning chest pain and palpitations that began 30 minutes prior to arrival. Patient describes the chest pain as "burning" 11/30. He reports that his pain now is a dull discomfort. Patient has history of heartburn, but has never experienced the type of pain he has today. Patient takes BuSpar twice daily for anxiety. He reports increased stress, as he has 3 children aged 1 week, 1 year and 3 years old, is moving in 2 weeks, and his parents as well as his in-laws are in town currently. He reports he has felt extremely overwhelmed in the past few days. He states his symptoms today feel like an anxiety attack. Patient denies history of hypertension, and states his blood pressure usually runs around 120/70. Patient has no other complaints at this time. (ZAIN ROSS) Review of Systems: Review of Systems: Constitutional: Denies fever or chills Respiratory: Denies cough or shortness of breath Cardiovascular: See HPI GI: Denies abdominal pain, nausea, vomiting, bloody stools or diarrhea Musculoskeletal: Denies back pain or joint pain Integument: Denies rash or diaphoresis Neurologic: Denies headache, focal weakness or sensory changes Psychiatric: See HPI (ZAIN ROSS) Current Medications: Current Meds: Current Medications Medications (Trade) Dose Ordered Sig/Alyx Start Time Stop Time Status Last Admin Dose Admin Alprazolam (Xanax) 0.5 mg 1X ONCE 02/28/21 15:45 02/28/21 15:46 UNV (ZAIN ROSS) Allergies: Allergies: Allergies Coded Allergies Type Severity Reaction Last Updated Verified cefaclor Allergy Unknown 11/10/19 Yes (ZAIN ROSS) Physical Exam: PE: Constitutional: Well developed, well nourished, no acute distress, non-toxic appearance. Cardiovascular: Heart rate regular rhythm, no murmur. Lungs & Thorax: Bilateral breath sounds clear to auscultation. Skin: Warm, dry, no erythema, no rash. Extremities: No tenderness, no cyanosis, no clubbing, ROM intact, no edema. Neurologic: Alert and oriented x4, normal motor function, normal sensory function, no focal deficits noted. Psychologic: Affect anxious, good judgment, mood "really fucking stressed." (ZAIN ROSS) Current Patient Data: Labs: Laboratory Tests Test 02/28/21 14:37 White Blood Count 8.3 x10^3/uL (4.0-11.0) Red Blood Count 4.38 x10^6/uL (4.30-5.70) Hemoglobin 14.9 g/dL (13.0-17.5) Hematocrit 43.4 % (39.0-53.0) Mean Corpuscular Volume 99 fL (79-100) Mean Corpuscular Hemoglobin 34 pg (25-35) Mean Corpuscular Hemoglobin Concent 34 g/dL (31-37) Red Cell Distribution Width 12.8 % (11.5-14.5) Platelet Count 223 x10^3/uL (140-400) Neutrophils (%) (Auto) 67 % (31-73) Lymphocytes (%) (Auto) 26 % (24-48) Monocytes (%) (Auto) 6 % (0-9) Eosinophils (%) (Auto) 1 % (0-3) Basophils (%) (Auto) 1 % (0-3) Neutrophils # (Auto) 5.5 x10^3uL (1.8-7.7) Lymphocytes # (Auto) 2.1 x10^3/uL (1.0-4.8) Monocytes # (Auto) 0.5 x10^3/uL (0.0-1.1) Eosinophils # (Auto) 0.1 x10^3/uL (0.0-0.7) Basophils # (Auto) 0.0 x10^3/uL (0.0-0.2) Sodium Level 139 mmol/L (136-145) Potassium Level 3.6 mmol/L (3.5-5.1) Chloride Level 101 mmol/L (98-107) Carbon Dioxide Level 29 mmol/L (21-32) Anion Gap 9 (6-14) Blood Urea Nitrogen 10 mg/dL (8-26) Creatinine 0.9 mg/dL (0.7-1.3) Estimated GFR (Cockcroft-Gault) 99.8 BUN/Creatinine Ratio 11 (6-20) Glucose Level 122 mg/dL (70-99) H Calcium Level 9.1 mg/dL (8.5-10.1) Total Bilirubin 0.3 mg/dL (0.2-1.0) Aspartate Amino Transferase (AST) 29 U/L (15-37) Alanine Aminotransferase (ALT) 66 U/L (16-63) H Alkaline Phosphatase 57 U/L (46-116) Troponin I High Sensitivity < 4 ng/L (4-75) L Total Protein 7.6 g/dL (6.4-8.2) Albumin 4.1 g/dL (3.4-5.0) Albumin/Globulin Ratio 1.2 (1.0-1.7) Vital Signs: VS - Last 72 Hours, by Label Date Time Temp Pulse Resp B/P (MAP) Pulse Ox O2 Delivery O2 Flow Rate FiO2 02/28/21 15:51 72 20 126/64 (84) Room Air 97.0 02/28/21 14:15 99.3 104 20 145/93 (110) 97 (ZAIN ROSS) EKG: EKG: EKG Interpreted by Dr. Caba at 1439: Sinus arrhythmia 81 bpm with regular rhythm and no ectopic beats. No concerning ST-T wave changes. Regular QR interval. (ZAIN ROSS) Radiology/Procedures: Radiology/Procedures: PROCEDURE: PORTABLE CHEST 1V AP chest. HISTORY: Chest pain AP view was taken of the chest. Lungs are clear. Heart is normal in size without heart failure. There is no pleural effusion. IMPRESSION: 1. No acute chest disease. Electronically signed by: Kevon Sams MD (02/28/2021 3:09 PM) [id number] (ZAIN ROSS) Heart Score: C/O Chest Pain: Yes HEART Score for Chest Pain: HEART Score for Chest Pain Response (Comments) Value History Slighlty/Non-Suspicious 0 ECG Normal 0 Age < 45 0 Risk Factors 1 or 2 Risk Factors 1 Troponin < Normal Limit 0 Total 1 Risk Factors: Risk Factors: obesity Risk Scores: Score 0 - 3: 2.5% MACE over next 6 weeks - Discharge Home Score 4 - 6: 20.3% MACE over next 6 weeks - Admit for Clinical Observation Score 7 - 10: 72.7% MACE over next 6 weeks - Early Invasive Strategies (ZAIN ROSS) Course & Med Decision Making: Course & Med Decision Making Pertinent Labs and Imaging studies reviewed. (See chart for details) Patient history and presentation consistent with anxiety attack. Patient work- up today will include troponin, EKG, portable chest x-ray and other blood work. Patient's work-up is largely unremarkable. Patient was given 0.5 alprazolam in the department. While in the department, patient was able to call his therapist and set up an appointment for this coming Sunday. Patient will be discharged home with prescription for alprazolam and return instructions for worsening cardiac symptoms. Patient understands and is agreeable to discharge plan. (ZAIN ROSS) Dragon Disclaimer: Dragon Disclaimer: This electronic medical record was generated, in whole or in part, using a voice recognition dictation system. (ZAIN RSOS) Attending Co-Sign The patient was seen and interviewed as well as examined at the bedside. The yusuf rt was reviewed. The case was discussed. Agree with the plan of care. (CLAIRE CABA DO) Departure Departure: Impression: Primary Impression: Anxiety attack Additional Impression: Chest pain not due to acute coronary syndrome Disposition: 01 HOME / SELF CARE / HOMELESS Condition: STABLE Referrals: PCP,UNKNOWN (PCP) Patient Instructions: Anxiety and Panic Attacks, [id number] Additional Instructions: As we discussed, your work-up today did not reveal any cardiac pathology requiring emergent attention. Likely, your symptoms today were secondary to an anxiety attack. I advised you to keep the appointment you have on Sunday for further management. Until then, alprazolam were prescribed to you. After your morning medications, if you are still feeling anxious and/or on edge, you may take 0.5-1 tablet. You may take an additional dose prior to bedtime if necessary. Please return to the emergency department if your symptoms are not well controlled by this treatment plan. Scripts Alprazolam (XANAX) 0.5 Mg Tablet 1 TAB PO DAILY for anxiety , #10 TAB Prov: ZAIN ROSS 02/28/21 ZAIN ROSS Feb 28, 2021 15:48 CLAIRE CABA DO Mar 02, 2021 15:07
[2021-02-28 15:51] VITALS: BP 126/64
[2021-02-28] MEDS ORDERED: ALPRAZolam 0.25 MG TABLET PO ONE (16:00)
--- NOTE | 2021-02-28 20:19 | EKG ---
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
== END 2021-02-28 15:55 | disposition home or self-care (01) ==
LOC: ER 13:58
DX: F41.9 Anxiety disorder, unspecified (principal); R07.89 Other chest pain; K21.9 Gastro-esophageal reflux disease without esophagitis; Z88.1 Allergy status to other antibiotic agents
CPT/HCPCS: 36415; 71045; 80053; 84484; 85025; 93005; 99285-25